=== PATIENT | female | born 2000 | race Caucasian/White ===

== ENCOUNTER → 2019-11-08 14:51 | Outpatient (CLI) | payer OTHER, SELFPAY ==
[2019-11-10 01:45] LABS: COVID19 Sendout Not Detected (Not Detect)
== END ==
PROVIDERS: PCP Physician Assistant; Visit Provider Physician Assistant
DX: Z01.818 Encounter for other preprocedural examination (principal)
CPT/HCPCS: 87635

== ENCOUNTER 2019-11-11 08:21 | Day surgery (SDC) | payer OTHER, SELFPAY ==
[2019-11-11 08:56] VITALS: BP 117/74; PULSE 86; RESP 16; TEMP 37.1; O2SAT 98; BMI 38.7
--- NOTE | 2019-11-11 09:07 | PM.HP.1 ---
History of Present Illness History of Present Illness Date Patient Seen: 11/11/19 Chief complaint: SDC Narrative: 19-year-old female seen at our office on 09/21/2019 due to abdominal pain, rectal bleeding, constipation who is here for a colonoscopy. Please refer to the op note for further details Meds Home Medications and Allergies Home Medications Medication Instructions Recorded Confirmed Type alprazolam 1 mg PO TID PRN 11/11/19 11/11/19 History cholecalciferol (vitamin D3) 25 mcg PO DAILY 11/11/19 11/11/19 History [Vitamin D3] fluoxetine 30 mg PO DAILY 11/11/19 11/11/19 History Allergies Allergy/AdvReac Type Severity Reaction Status Date / Time No Known Drug Allergies Allergy Verified 11/11/19 08:49 Exam Narrative Exam Narrative: General: Patient is well developed, not in apparent distress Cardiovascular: Regular rate and rhythm, no murmurs, rubs, or gallops; no evidence of edema; no palpable abdominal aortic aneurysm Gastrointestinal: Normoactive bowel sounds, soft, nontender, nondistended, no rebound tenderness, no hepatosplenomegaly, no evidence of hernia Assessment & Plan Assessment & Plan narrative: 19-year-old female with history of rectal bleeding, change in bowel habits, abdominal pain who is here for colonoscopy Regarding the procedure(s), the risks and potential complications, benefits, and alternatives (including not doing the procedure) were discussed with the patient. The risks include but are not limited to bleeding, splenic injury, infection, perforation which may require surgical intervention, missed lesions, and adverse reactions to sedative medicines. After a question and answer period, the patient agreed to proceed with the procedure(s) and gives informed consent.
[2019-11-11] MEDS: SODIUM CHLORIDE 0.9% 1,000 ML 70 ML IV (09:25)
[2019-11-11] MEDS: fentaNYL 250 MCG/5 ML INJ IV (09:46)
[2019-11-11] MEDS: MIDAZOLAM 5 MG/5 ML VIAL IV (09:46)
--- NOTE | 2019-11-11 09:54 | P.OP.ENDO_ITS ---
Operative Date/Time/Diagnoses Date of procedure: 11/11/19 Procedure Notes Procedure in detail: Surgeon: Ric Medina MD Procedure: Colonoscopy Preoperative diagnosis: Rectal bleeding, abdominal pain Postoperative diagnosis: Normal colonoscopy Medications: Conscious sedation using 6 mg IV of Midazolam and 100 mcg IV of Fentanyl Preanesthesia Assessment An H and P was performed/updated and the Px?s ASA class is 2. The procedure was discussed in detail with the patient. The potential risks and complications including infection, bleeding, missed lesions, perforation, need for surgery in case of perforation, prolonged hospital stay, and were explained. A brief question and answer period was allotted and once all questions were answered, informed consent was obtained. The patient was brought back to the procedure room and placed on standard monitoring. The patient?s vital signs were monitored continuously throughout the entire procedure. Prior to starting, a timeout was performed to confirm the patient?s identity, allergies, medications, and procedure. Procedure in detail The patient was placed in left lateral decubitus position and once adequate sedation was obtained a STEVE was performed. The digital rectal examination did not reveal any palpable lesions. The tip of the colonoscope was placed in the anal canal and advanced without difficulty all the way to the cecum which was identified by the appendiceal orifice and the ileocecal valve. The terminal ileum was intubated to a distance of 5 cm and the mucosa appeared normal. The colonoscope was then brought back into the cecum and careful examination of all robin of the colon was performed with irrigation of any residual stool. The colonic mucosa appeared normal throughout the entire colon Retroflexion was performed in the rectum and this was normal The patient tolerated the procedure well and will be brought back to the recovery area to be discharged once criteria are met. The prep was judged to be good and adequate to identify polyps less than 5 mm. The withdrawal time was 7 minutes. The total physician intraservice time was 11 minutes. Complications There were no complications and estimated blood loss was zero. Recommendations: Resume previous diet Continue outPx medications No recommendations for repeat colonoscopy at this time given normal findings and patient's young age Call our office ([facility] [place] [facility]) to schedule follow-up with Dr. Monique An emergency contact number was given to the patient for any complications related to the procedure
[2019-11-11 09:57] VITALS: BP 108/55; PULSE 91; RESP 19; TEMP 36.1; O2SAT 87
[2019-11-11 10:02] VITALS: BP 106/78; PULSE 97; RESP 17; TEMP 36.2; O2SAT 95
[2019-11-11 10:09] VITALS: BP 123/81; PULSE 92; RESP 14; TEMP 36.1; O2SAT 100
[2019-11-11 10:16] VITALS: BP 126/81; PULSE 97; RESP 19; TEMP 36.3; O2SAT 100
[2019-11-11 10:20] VITALS: BP 131/71; PULSE 93; RESP 17; TEMP 36.2; O2SAT 99
== END 2019-11-11 10:34 | disposition home or self-care (01) ==
PROVIDERS: PCP Physician Assistant; Referring Provider Internal Medicine Gastroenterology; Visit Provider Internal Medicine Gastroenterology
PROC: 0DJD8ZZ Inspection of Lower Intestinal Tract, Via Natural or Artificial Opening Endoscopic (ICD-10-PCS; CPT 45378; principal; 2019-11-11 09:30)
DX: K62.5 Hemorrhage of anus and rectum (principal); R10.9 Unspecified abdominal pain; K59.00 Constipation, unspecified
CPT/HCPCS: 45378; J2250; J3010

== ENCOUNTER → 2020-02-07 14:58 | Outpatient (CLI) | payer OTHER, SELFPAY ==
[2020-02-08 11:11] LABS: COVID19 -Nasal RAPID Negative (Negative)
== END ==
PROVIDERS: PCP Physician Assistant; Visit Provider Physician Assistant
DX: Z11.59 Encounter for screening for other viral diseases (principal)
CPT/HCPCS: 87635

== ENCOUNTER → 2020-02-21 11:54 | Outpatient (CLI) | payer OTHER, SELFPAY ==
[2020-02-22 20:07] LABS: COVID19 Sendout Not Detected (Not Detect)
== END ==
PROVIDERS: PCP Physician Assistant; Visit Provider Physician Assistant
DX: Z11.59 Encounter for screening for other viral diseases (principal)
CPT/HCPCS: 87635

== ENCOUNTER 2020-02-24 12:47 | Day surgery (SDC) | payer OTHER, SELFPAY ==
[2020-02-24] VITALS (8 sets, daily range): BP systolic 110–143; BP diastolic 66–90; PULSE 75–101; RESP 16–20; TEMP 36.7–37.1; O2SAT 97–99; BMI 39.4
--- NOTE | 2020-02-24 | PATH_ITS ---
[facility] Accession Number: [id number] . 01 Material submitted: . PART A: small bowel - SMALL BOWEL PART B: GASTRIC . 01 Clinical history: . SDC A: R/O SPRUCE B: R/O H.PYLORI . 02 Diagnosis: A. Small Bowel, Biopsy: Duodenal mucosa with no diagnostic abnormality. Negative for active inflammation, features of sprue, dysplasia, or malignancy. . B. Stomach, Biopsy: Antral and body-type mucosa with no diagnostic abnormality. Negative for Helicobacter by immunohistochemistry. Negative for intestinal metplasia. Negative for dysplasia and malignancy. BFI 03/01/2020 1501 Local . 02 Electronically signed: . Belgica Correa MD, Pathologist NPI- [id number] . 01 Gross description: . A. Received in formalin, labeled small bowel, and consists of four florence fragments of soft tissue measuring 0.6 x 0.6 x 0.2 cm in aggregate. The specimen is entirely submitted in cassette A1. B. Received in formalin, labeled gastric, and consists of florence florence-pink fragments of soft tissue measuring 0.4 x 0.3 x 0.2 cm in aggregate. The specimen is entirely submitted in cassette B1. (EA:[id number]) /MRV 02/25/2020 1528 Local . 02 Microscopic: . B. An immunohistochemical stain was performed to evaluate for Helicobacter organisms and is negative. The control stain showed appropriate reactivity. . * This test was developed and its performance characteristics determined by [employer]. It has not been cleared or approved by the U.S. Food and Drug Administration. The FDA has determined that such clearance or approval is not necessary. This test is used for clinical purposes. It should not be regarded as investigational or for research. . . 02 Pathologist provided ICD-10: R10.84 . 02 CPT . 045658, [id number], [id number] Performed at: 01 [facility] [address] [place] [address], [place], [place] [id number] MD Bryson Peter MD Phone: [phone] Performed at: [id number] [place], [place] [id number] MD Belgica Correa MD Phone: [phone]
[2020-02-24] MEDS: SODIUM CHLORIDE 0.9% 1,000 ML 70 ML IV (13:00)
--- NOTE | 2020-02-24 14:25 | PM.HP.1 ---
History of Present Illness History of Present Illness Date Patient Seen: 02/24/20 Time Patient Seen: 14:25 Chief complaint: SDC Narrative: Patient is a pleasant 19-year-old female who presents to for upper endoscopy for further evaluation who was last seen on March 23, 2020 for abdominal pain and heartburn she has been using a PPI and Bentyl for abdominal pain since that time but does not feel this has improved her symptoms. Patient History Family & Social History Social History: household members family Tobacco & Substance use: Smoking Status Never smoker alcohol intake never Substance Use Type does not use Meds Home Medications and Allergies Home Medications Medication Instructions Recorded Confirmed Type alprazolam 1 mg PO TID PRN 11/11/19 02/24/20 History cholecalciferol (vitamin D3) 25 mcg PO DAILY 11/11/19 02/24/20 History [Vitamin D3] fluoxetine 30 mg PO DAILY 11/11/19 02/24/20 History omeprazole 20 mg PO DAILY PRN 02/24/20 02/24/20 History tramadol 50 mg PO Q4HR PRN 02/24/20 02/24/20 History Allergies Allergy/AdvReac Type Severity Reaction Status Date / Time latex AdvReac Intermediate Rash Verified 02/24/20 13:26 Review of Systems Review of Systems ROS: Yes All systems reviewed with the patient and are negative except as otherwise documented Exam Vital Signs (past 8 hours): - 02/24/20 13:17 Temperature 98.1 F Pulse Rate 75 Respiratory Rate 16 Blood Pressure 110/66 Pulse Oximetry 98 Oxygen Delivery Method Room Air Const General: cooperative, healthy appearing, comfortable and well developed Nutritional Appearance: average body habitus Orientation: alert, awake and oriented x3 HENMT Head: normocephalic and atraumatic Resp Effort & Inspection: normal respiratory effort and able to speak in complete sentences Auscultation: clear to auscultation bilaterally Cardio Rate: regular rate Rhythm: regular rhythm Heart Sounds: S1 normal and S2 normal GI Palpation: soft and No tender Auscultation: normal bowel sounds Extrem Right lower extremity: no edema Left lower extremity: no edema Assessment & Plan Assessment & Plan narrative: 1. Abdominal pain 2. Heartburn despite PPI therapy -EGD today, further recommendations to follow
[2020-02-24] MEDS: fentaNYL 250 MCG/5 ML INJ IV (14:33)
[2020-02-24] MEDS: MIDAZOLAM 5 MG/5 ML VIAL IV (14:34)
[2020-02-24] MEDS: LIDOCAINE 4% SOLN 50 ML 20 ML TOP (14:36)
--- NOTE | 2020-02-24 14:51 | PM.OP.ENDO ---
Operative Date/Time/Diagnoses Date of procedure: 02/24/20 Time of procedure: 14:33 Procedure Notes Procedure in detail: Surgeon: Nighat Monique DO Procedure: Esophagogastroduodenoscopy with biopsy Preoperative diagnosis: 1. Epigastric abdominal pain 2. Heartburn Postoperative diagnosis: 1. Normal appearing esophagus 2. Mild erythema in the stomach biopsied to rule out H pylori infection 3. Normal-appearing duodenum, biopsies to rule out celiac sprue 4. Normal stomach on retroflexion Medications: Conscious sedation using 5 mg IV of Midazolam and 125 mcg IV of Fentanyl, lidocaine gargle Preanesthesia Assessment An H and P was performed/updated and the Px?s ASA class is 1. The procedure was discussed in detail with the patient. The potential risks and complications including infection, bleeding, missed lesions, perforation, need for surgery in case of perforation, prolonged hospital stay, and were explained. A brief question and answer period was allotted and once all questions were answered, informed consent was obtained. The patient was brought back to the procedure room and placed on standard monitoring. The patient?s vital signs were monitored continuously throughout the entire procedure. Prior to starting, a timeout was performed to confirm the patient?s identity, allergies, medications, and procedure. Procedure in detail The patient was placed in left lateral decubitus position and a bite block was inserted. The tip of the upper endoscope was placed into the mouth and advanced without difficulty under direct visualization into the esophagus. Esophagus: Normal-appearing esophagus Stomach: Mild erythema in the antrum biopsy to rule out H pylori Normal stomach on retroflexion Duodenum: Normal-appearing duodenum, biopsy to rule celiac sprue The patient tolerated the procedure well and will be brought back to the recovery area to be discharged once criteria are met. The total physician intraservice time was 12 minutes. Complications There were no complications and estimated blood loss was minimal. Recommendations: Resume previous diet Continue outPx medications Follow up pathology results Office follow up if persistent systems An emergency contact number was given to the patient for any complications related to the procedure
== END 2020-02-24 15:42 | disposition home or self-care (01) ==
PROVIDERS: PCP Physician Assistant; Referring Provider Physician Assistant; Visit Provider Student in an Organized Health Care Education/Training Program
PROC: 0DJ08ZZ Inspection of Upper Intestinal Tract, Via Natural or Artificial Opening Endoscopic (ICD-10-PCS; CPT 43235; principal; 2020-02-24 14:00)
DX: R10.13 Epigastric pain (principal); F32.9 Major depressive disorder, single episode, unspecified; F41.9 Anxiety disorder, unspecified; E66.9 Obesity, unspecified; E55.9 Vitamin D deficiency, unspecified; F40.01 Agoraphobia with panic disorder
CPT/HCPCS: 43239; J2250; J3010